=== PATIENT | male | born 1990 | race Caucasian/White ===

== ENCOUNTER → 2016-12-20 | Outpatient (CLI) | payer OTHER ==
[~2016-12-20] MED LIST: AMOXICILLIN500 MG PO; CLONIDINE0.1 MG PO; NKHM; XANAX1 MG PO; ZOFRAN ODT4 MG PO
== END | disposition home or self-care (01) ==
LOC: RAD 15:22
DX: J18.9 Pneumonia, unspecified organism (principal); R07.89 Other chest pain

== ENCOUNTER 2019-11-19 12:47 | Emergency (ER) | payer OTHER ==
[~2019-11-19] VITALS: Ht 177.8 cm; Wt 182.3 kg
[2019-11-19 12:55] VITALS: BP 145/88
[2019-11-19] MEDS ORDERED: SERTRALINE HYD100 MG PO (13:14)
[2019-11-19] MEDS ORDERED: VYVANSE70 MG PO (13:14)
[2019-11-19 13:43] VITALS: BP 133/96
--- NOTE | 2019-11-19 13:43 | NUR ---
PATIENT PREFERS TO NOT PUT ON HOSPITAL GOWN.
--- NOTE | 2019-11-19 14:00 | NUR ---
PATIENT TO RADIOLOGY FOR US AND CT
[2019-11-19 14:12] LABS: BASO % 0.5 % (0.0-1.0); EOS # 0.3 10*3/uL (0.0-0.4); EOS % 4.1 % (1.0-4.0); HEMATOCRIT 37.3 % (42.0-52.0); LYMPH % 13.7 % (27.0-41.0); MEAN CORPUSCULAR HGB 27.3 pg (27.0-31.0); MEAN CORPUSCULAR HGB CONC 32.2 g/dl (33.0-37.0); MONO # 0.5 10*3/uL (0.1-1.0); MONO % 6.5 % (3.0-9.0); NEUT # 5.5 10*3/uL (2.3-7.9); NEUT % 74.9 % (47.0-73.0); PLATELET COUNT AUTOMATED 297 10*3/uL (130-400); RED BLOOD COUNT 4.39 10*6/uL (4.50-5.90); RED CELL DISTRI WIDTH 13.2 % (0-14.5); WHITE BLOOD COUNT 7.4 10*3/uL (4.8-10.8)
[2019-11-19 14:33] LABS: ALBUMIN 3.4 gm/dl (3.1-4.5); ALKALINE PHOSPHATASE 123 U/L (45-117); BUN 14 mg/dl (7-24); CHLORIDE 105 mmol/L (98-107); CREATININE 0.91 mg/dL (0.70-1.30); LIPASE 33 U/L (73-393); POTASSIUM 3.8 mmol/L (3.5-5.1); SGOT/AST 51 IU/L (3-35); SGPT/ALT 41 U/L (12-78); SODIUM 140 mmol/L (136-145); TOTAL PROTEIN 7.3 gm/dL (6.4-8.2)
[2019-11-19 14:34] VITALS: BP 138/85
--- NOTE | 2019-11-19 15:00 | NUR ---
PATIENT SLEEPING IN BED RAILS UP BILATERALLY
[2019-11-19 15:10] VITALS: BP 112/76
--- NOTE | 2019-11-19 15:38 | NUR ---
patient called to desk tearful. states that he has no one to care for his animals at home and does not want to be admitted. patient is currently getting iv antibiotics. i discussed staying until at least those were infused, and explained that the physician sánchez is off the floor at the moment and as soon as she returned i would have her come and speak with him. He voiced understanding and was agrreable to stay for administration of antibiotics.
[2019-11-19 16:07] LABS: BACTERIA TRACE; BILIRUBIN NEGATIVE (NEGATIVE); BLOOD NEGATIVE (NEGATIVE); CLARITY CLEAR (CLEAR); COLOR YELLOW (YELLOW); GLUCOSE NEGATIVE (NEGATIVE); KETONE NEGATIVE (NEGATIVE); LEUKO ESTERASE NEGATIVE (NEGATIVE); NITRITE NEGATIVE (NEGATIVE); UROBILINOGEN 0.2 E.U./dl (0.2-1.0); WBC 0-2 wbc/hpf (0-5)
--- NOTE | 2019-11-19 16:34 | NUR ---
REPORT CALLED TO ISABELA, THEY NEED TO PUT BARIATRIC BED IN ROOM SHE WILL CALL BACK WHEN THE BED IS IN RROM.
[2019-11-19] MEDS ORDERED: DOXYCYCLINE100 M3 PO (16:49)
--- NOTE | 2019-11-19 16:53 | NUR ---
PATIENT REFUSES TO BE ADMITTED. LEAVING AMA.
== END 2019-11-19 16:48 | disposition left against medical advice (07) ==
LOC: ED 12:47 → EDHOLD 16:03 → 4E 16:29 → ED 16:48 → 4E 17:05
PROVIDERS: Physician Assistant
DX: L03.116 Cellulitis of left lower limb (principal); L03.115 Cellulitis of right lower limb; L03.311 Cellulitis of abdominal wall; F41.9 Anxiety disorder, unspecified; F32.9 Major depressive disorder, single episode, unspecified; F17.200 Nicotine dependence, unspecified, uncomplicated; Z79.899 Other long term (current) drug therapy

== ENCOUNTER 2019-11-22 18:34 | Emergency (ER) | payer OTHER ==
[~2019-11-22] VITALS: Ht 177.8 cm; Wt 181.4 kg
[~2019-11-22 18:34] MED LIST changes: +DOXYCYCLINE100 M3 PO; +SERTRALINE HYD100 MG PO; +VYVANSE70 MG PO
[2019-11-22 18:42] VITALS: BP 137/89
[2019-11-22 19:49] LABS: BASO % 0.4 % (0.0-1.0); EOS # 0.2 10*3/uL (0.0-0.4); EOS % 2.1 % (1.0-4.0); HEMATOCRIT 40.7 % (42.0-52.0); LYMPH # 1.4 10*3/uL (1.3-4.4); LYMPH % 14.4 % (27.0-41.0); MEAN CORPUSCULAR HGB 27.4 pg (27.0-31.0); MEAN CORPUSCULAR HGB CONC 31.4 g/dl (33.0-37.0); MEAN PLATELET VOLUME 10.5 fl (9.6-12.3); MONO # 0.5 10*3/uL (0.1-1.0); MONO % 5.4 % (3.0-9.0); NEUT # 7.3 10*3/uL (2.3-7.9); NEUT % 77.2 % (47.0-73.0); PLATELET COUNT AUTOMATED 324 10*3/uL (130-400); RED BLOOD COUNT 4.68 10*6/uL (4.50-5.90); RED CELL DISTRI WIDTH 13.6 % (0-14.5); WHITE BLOOD COUNT 9.5 10*3/uL (4.8-10.8)
[2019-11-22 20:03] LABS: ALBUMIN 3.6 gm/dl (3.1-4.5); ALKALINE PHOSPHATASE 124 U/L (45-117); BUN 8 mg/dl (7-24); CHLORIDE 106 mmol/L (98-107); CREATININE 0.79 mg/dL (0.70-1.30); POTASSIUM 3.8 mmol/L (3.5-5.1); SGOT/AST 27 IU/L (3-35); SGPT/ALT 51 U/L (12-78); SODIUM 137 mmol/L (136-145); TOTAL PROTEIN 7.7 gm/dL (6.4-8.2)
[2019-11-22] MEDS ORDERED: KEFLEX500 M1 PO (21:42)
[2019-11-22] MEDS ORDERED: SEPTDS PO (21:42)
== END 2019-11-22 21:51 | disposition home or self-care (01) ==
LOC: ED 18:34
PROVIDERS: Emergency Medicine Emergency Medical Services
DX: L03.116 Cellulitis of left lower limb (principal); L03.115 Cellulitis of right lower limb; F32.9 Major depressive disorder, single episode, unspecified; F41.9 Anxiety disorder, unspecified; F17.200 Nicotine dependence, unspecified, uncomplicated; Z79.899 Other long term (current) drug therapy

== ENCOUNTER 2019-12-04 18:01 | Emergency (ER) | payer OTHER ==
[~2019-12-04 18:01] MED LIST changes: +KEFLEX500 M1 PO; +SEPTDS PO
[2019-12-04 18:04] VITALS: BP 128/75
== END 2019-12-04 18:15 | disposition left against medical advice (07) ==
LOC: ED 18:01
DX: T65.91XA Toxic effect of unspecified substance, accidental (unintentional), initial encounter (principal); F32.9 Major depressive disorder, single episode, unspecified; F41.9 Anxiety disorder, unspecified; F17.200 Nicotine dependence, unspecified, uncomplicated; Z79.899 Other long term (current) drug therapy; Z79.2 Long term (current) use of antibiotics; Y92.89 Other specified places as the place of occurrence of the external cause